=== PATIENT | female | born 1945 | race Caucasian/White ===

== ENCOUNTER → 2023-09-12 | Outpatient (CLI) | payer MEDICARE, OTHER | END | disposition home or self-care (01) | LOC: SHCH 09:26 | PROVIDERS: ATTEND Internal Medicine | DX: I08.0 Rheumatic disorders of both mitral and aortic valves (principal); R94.31 Abnormal electrocardiogram [ECG] [EKG] | CPT/HCPCS: 93306 ==

== ENCOUNTER → 2023-10-07 | Outpatient (CLI) | payer MEDICARE, OTHER ==
[2023-10-07] MEDS: REGADENOSON 0.4 MG/5 ML PF SYG IVP ONE (10:28)
== END | disposition home or self-care (01) ==
LOC: SHCH 08:19
PROVIDERS: ATTEND Internal Medicine
DX: I49.3 Ventricular premature depolarization (principal); R94.31 Abnormal electrocardiogram [ECG] [EKG]; R07.89 Other chest pain
CPT/HCPCS: 78452; 96374; 93017; J2785; A9500 ×2

== ENCOUNTER 2024-04-21 16:17 | Observation (INO) | payer MEDICARE ==
[~2024-04-21] VITALS: Ht 167.6 cm; Wt 87.5 kg
--- NOTE | 2024-04-21 16:44 | EKG ---
[facility] Test Date: 2024-04-21 Test Time: 16:41:24 Pat Name: NAINA MORGAN Department: [facility] Room: Gender: F Websphere Administrator: [id number] : 1945 Requested By: BANDAR DANG Order Number: [id number] Reading MD: Erika Flores Measurements Intervals [place] Rate: 89 P: 34 SD: 178 QRS: 35 QRSD: 97 T: 36 QT: 374 QTc: 455 Interpretive Statements Sinus rhythm Low voltage, precordial leads No previous ECG available for comparison Electronically Signed On 04-21-2024 17:10:20 JEWELRY MOLD MAKER by Erika Flores Please click the below link to view image of tracing.
[2024-04-21 16:48] LABS: BASOPHILS # (AUTO) 0.06 K/uL (0.00-0.20); BASOPHILS % (AUTO) 0.8 % (0.0-5.0); EOSINOPHILS # (AUTO) 0.19 K/uL (0.00-0.70); EOSINOPHILS % (AUTO) 2.6 % (0.0-8.0); HEMATOCRIT 41.2 % (36-48); IMMATURE GRANULOCYTE ABSOLUTE 0.02 K/uL (0-1); LYMPHOCYTES # (AUTO) 2.4 K/uL (1.0-4.8); LYMPHOCYTES % (AUTO) 32.5 % (21.0-51.0); MEAN CORPUSCULAR HEMOGLOBIN 31.5 pg (27.0-33.0); MEAN CORPUSCULAR VOLUME 95.4 fL (79-99); MONOCYTES # (AUTO) 0.6 K/uL (0.1-1.0); MONOCYTES % (AUTO) 8.6 % (3.0-13.0); NEUTROPHILS % (AUTO) 55.2 % (40.0-77.0); PLATELET COUNT (AUTO) 139 K/uL (130-400); RED BLOOD CELL COUNT(AUTO) 4.32 MIL/uL (4.00-5.50); RED CELL DISTRIBUTION WIDTH 14.1 % (11.0-15.5); WHITE BLOOD COUNT (AUTO) 7.2 K/uL (4.8-10.8)
--- NOTE | 2024-04-21 16:48 | NUR ---
SEE TRAUMA FLOWSHEET
[2024-04-21] MEDS: LIDOCAINE HCL 1% 20 ML VIAL INJ STA (17:09)
[2024-04-21] MEDS: teTANUS/diphthERIA TOXOID [ADULT] 0.5 ML VIAL IM ONE (17:11)
[2024-04-21 17:14] LABS: CREATININE 1.3 mg/dL (0.5-1.0); POTASSIUM 4.5 mmol/L (3.5-5.1)
--- NOTE | 2024-04-21 17:15 | HMCIMG ---
CT HEAD/BRAIN W/O CONTRAST HISTORY: No additional history given. COMPARISON: None TECHNIQUE: Multiple sequential axial images of the head were obtained from the base of the skull through vertex. Patient was not given contrast through intravenous route. FINDINGS: Left frontal scalp soft tissue swelling is seen. The ventricles and extraventricular CSF spaces are dilated consistent with cerebral atrophy. Nonspecific white matter changes seen. There is no midline shift, mass effect or herniation. No acute intracranial bleed is seen. Visualized portion of the paranasal sinuses are grossly within normal limits. IMPRESSION: 1. No acute intracranial bleed is seen. 2. Atrophy with white matter changes. CT was performed with one or more following dose reduction techniques: automated exposure control, adjustment of the mA and kv according to patient's size, or use of a iterative reconstruction technique.
--- NOTE | 2024-04-21 17:17 | HMCIMG ---
CT CERVICAL SPINE W/O CONTRAST HISTORY: Trauma COMPARISON: None TECHNIQUE: Multiple sequential axial images of the cervical spine were obtained including post processing sagittal and coronal reconstruction images. Patient was not given contrast through intravenous route. FINDINGS: There is straightening of normal lordotic cervical curvature which may be related to muscle spasm or positioning. There is no loss of vertebral height. Evaluation for disc and cord pathology is limited with CT study. No evidence of fracture or dislocation is seen. There are degenerative changes with cervical spine spondylosis. There is atherosclerosis. IMPRESSION: 1. No fracture is seen. DJD with cervical spine spondylosis. CT was performed with one or more following dose reduction techniques: automated exposure control, adjustment of the mA and kv according to patient's size, or use of a iterative reconstruction technique.
--- NOTE | 2024-04-21 17:55 | ERN ---
ED Note History of Present Illness Stated Complaint: HEAD LACERATION Chief Complaint: Multiple Trauma/Fall Time Seen by MD: 16:22 Time Seen by Midlevel: 16:30 Dictation: 78-year-old female with a history of AFib, hypertension, cholesterol went to the bathroom stood up from the toilet felt dizzy and had a syncopal episode. Patient is taking Xarelto. Complaining of headache and pain to the left upper eyebrow, laceration noted with bruising and minimal bleeding. Allergies: Coded Allergies: Penicillins (Unverified Allergy, Unknown, 04/21/24) morphine (Unverified Allergy, Unknown, 04/21/24) Past Medical History Past Medical History: No Pertinent History Surgical History: None Review of System Dictation Constitutional: Negative for fever,chills, and weight loss Eyes: Negative for injury, pain,redness, and discharge ENT: Negative for injury,pain or swelling Cardiovascular: Negative for chest pain, palpitations, and edema Respiratory: Negative for shortness of breath, cough, and wheezing, Abdomen/GI: Negative for abdominal pain, nausea, vomiting, diarrhea, and constipation Back: Negative for injury and pain : Negative for injury, bleeding and discharge MS/Extremity: Negative for injury and deformity laceration to the left upper eyebrow Skin: Negative for rash, and discoloration Neuro: Negative for headache, weakness, numbness, tingling, and seizure , syncopal episode Psych: Negative for suicide ideation, homicidal ideation, and hallucinations Review of Systems: was completed Initial Vital Sign VS Vital Signs Date Time Temp Pulse Resp B/P (MAP) Pulse Ox O2 Delivery O2 Flow Rate FiO2 04/21/24 16:29 97.0 99 0 162/72 98 Room Air Physical Exam Dictation General: awake, alert, NAD Head/Face: Normocephalic, atraumatic Eyes: PERRL, EOMI, vision at baseline ENT: oral cavity clear, TMs clear, no signs of infection Neck: Trachea midline, supple, no nuchal rigidity Cardiovascular: RRR, normal S1/S2, No MRGs, no JVD Respiratory: CTAB, no respiratory distress, No rales or wheezes Abdomen: Soft, non-tender, non-distended, normal bowel sounds, no guarding or rebound. Skin: Warm, dry, normal turgor, no rash 1 in laceration above the left eyebrow MS/Extremity: Pulses equal, no cyanosis, neurovascular intact, FROM Neuro: COAx4, GCS 15, strength 5/5, CN 2-12 intact, normal cerebellar exam, normal gait, Psych: Normal behavior, mood, and affect normal Results (Laboratory/Radiology) Laboratory/Radiology Laboratory Tests Test 04/21/24 16:40 White Blood Count 7.2 K/uL (4.8-10.8) Red Blood Count 4.32 MIL/uL (4.00-5.50) Hemoglobin 13.6 g/dL (12.0-16.0) Hematocrit 41.2 % (36-48) Mean Corpuscular Volume 95.4 fL (79-99) Mean Corpuscular Hemoglobin 31.5 pg (27.0-33.0) Mean Corpuscular Hemoglobin Concent 33.0 g/dL (32.0-36.0) Red Cell Distribution Width 14.1 % (11.0-15.5) Platelet Count 139 K/uL (130-400) Mean Platelet Volume 10.2 fL (7.5-10.5) Immature Granulocyte % (Auto) 0.3 % (0-1) Neutrophils (%) (Auto) 55.2 % (40.0-77.0) Lymphocytes (%) (Auto) 32.5 % (21.0-51.0) Monocytes (%) (Auto) 8.6 % (3.0-13.0) Eosinophils (%) (Auto) 2.6 % (0.0-8.0) Basophils (%) (Auto) 0.8 % (0.0-5.0) Neutrophils # (Auto) 4.0 K/uL (1.8-7.7) Lymphocytes # (Auto) 2.4 K/uL (1.0-4.8) Monocytes # (Auto) 0.6 K/uL (0.1-1.0) Eosinophils # (Auto) 0.19 K/uL (0.00-0.70) Basophils # (Auto) 0.06 K/uL (0.00-0.20) Absolute Immature Granulocyte (auto 0.02 K/uL (0-1) Nucleated Red Blood Cells 0.0 % (0.0-0.19) Sodium Level 142 mmol/L (136-145) Potassium Level 4.5 mmol/L (3.5-5.1) Chloride Level 105 mmol/L (101-111) Carbon Dioxide Level 30 mmol/L (21-32) Blood Urea Nitrogen 28 mg/dL (7-18) H Creatinine 1.3 mg/dL (0.5-1.0) H Glomerular Filtration Rate Calc 42 mL/min (>90) Random Glucose 133 mg/dL (70-105) H Total Calcium 9.4 mg/dL (8.5-10.1) Troponin I High Sensitivity 10 ng/L (4-50) Labs Reviewed?: Yes EKG Comment: Date:04/21/23 Time:1641 Ventricular rate:89 [place] interval:178 QRS duration:35 QT/QTc:374/455 EKG interpretation: Sinus rhythm, low voltage, precordial leads Reviewed by ED Attending no STEMI interpreted by ER MD CT Scan Comment: [address] [address] IMAGING REPORT Signed PATIENT: NAINA MORGAN MR#: [id number] : 1945 SEX: F AGE: 78 LOCATION: [facility] ORDER 1630 STATUS: REG ER REPORT#: [id number] SERVICE 1629 REASON: syncope/fall ORDERING PHYSICIAN: BANDAR DANG NP PROCEDURE: HEAD WO - CT HEAD/BRAIN W/O CONTRAST CT HEAD/BRAIN W/O CONTRAST HISTORY: No additional history given. COMPARISON: None TECHNIQUE: Multiple sequential axial images of the head were obtained from the base of the skull through vertex. Patient was not given contrast through intravenous route. FINDINGS: Left frontal scalp soft tissue swelling is seen. The ventricles and extraventricular CSF spaces are dilated consistent with cerebral atrophy. Nonspecific white matter changes seen. There is no midline shift, mass effect or herniation. No acute intracranial bleed is seen. Visualized portion of the paranasal sinuses are grossly within normal limits. IMPRESSION: 1. No acute intracranial bleed is seen. 2. Atrophy with white matter changes. CT was performed with one or more following dose reduction techniques: automated exposure control, adjustment of the mA and kv according to patient's size, or use of a iterative reconstruction technique. DICTATED BY: DANIELLE RYAN MD DATE: 04/21/241711 ELECTRONICALLY SIGNED BY: DANIELLE RYAN MD DATE: 04/21/241714 [place] [id number] [id number] IMAGING REPORT Signed PATIENT: NAINA MORGAN MR#: [id number] : 1945 SEX: F AGE: 78 LOCATION: [facility] ORDER 1630 STATUS: REG [facility] RE[facility]#: [id number] SERVICE 162 REASON: syncope/fall ORDERING PHYSICIAN: BANDAR DANG NP PROCEDURE: C SPIN WO - CT CERVICAL SPINE W/O CONTRAST CT CERVICAL SPINE W/O CONTRAST HISTORY: Trauma COMPARISON: None TECHNIQUE: Multiple sequential axial images of the cervical spine were obtained including post processing sagittal and coronal reconstruction images. Patient was not given contrast through intravenous route. FINDINGS: There is straightening of normal lordotic cervical curvature which may be related to muscle spasm or positioning. There is no loss of vertebral height. Evaluation for disc and cord pathology is limited with CT study. No evidence of fracture or dislocation is seen. There are degenerative changes with cervical spine spondylosis. There is atherosclerosis. IMPRESSION: 1. No fracture is seen. DJD with cervical spine spondylosis. CT was performed with one or more following dose reduction techniques: automated exposure control, adjustment of the mA and kv according to patient's size, or use of a iterative reconstruction technique. DICTATED BY: DANIELLE RYAN MD DATE: 04/21/241712 ELECTRONICALLY SIGNED BY: DANIELLE RYAN MD DATE: 04/21/241716 ED Course ED Course Orders Procedure Category Date Status Time Cbc With Differential LAB 04/21/24 Complete 16:29 Basic Metabolic Panel LAB 04/21/24 Complete 16:29 12 Lead Ekg Tracing- EKG 04/21/24 Resulted Technical 16:29 Troponin I High LAB 04/21/24 Complete Sensitivity 16:29 Ct Head/Brain W/O CT 04/21/24 Resulted Contrast 16:29 Ct Cervical Spine W/O CT 04/21/24 Resulted Contrast 16:29 Urinalysis Profile LAB 04/21/24 Logged 16:29 Lidocaine Hcl 1% 20ml PHA 04/21/24 Complete Vial (Lidocaine Hc 16:31 Tetanus,Diphtheria PHA 04/21/24 Complete Tox [Adult] (Diphther 17:00 Current Medications Medications (Trade) Dose Ordered Sig/Ben Route PRN Reason Start Time Stop Time Status Last Admin Dose Admin Lidocaine HCl (Lidocaine HCl 1% 20ml Vial) 10 ml ONCE STAT INJ 04/21/24 16:31 04/21/24 16:33 DC 04/21/24 17:09 Tetanus/ Diphtheria Toxoids Adsorbed (DiphthERIA-teTANUS TOXOID [ADULT]/ DECAVAC) 0.5 ml ONCE ONCE IM 04/21/24 17:00 04/21/24 17:01 DC 04/21/24 17:11 Vital Signs Date Time Temp Pulse Resp B/P (MAP) Pulse Ox O2 Delivery O2 Flow Rate FiO2 04/21/24 16:29 97.0 99 0 162/72 98 Room Air Medical Decision Making MDM MDM: 78-year-old female with a history of AFib, hypertension, cholesterol went to the bathroom stood up from the toilet felt dizzy and had a syncopal episode. Patient is taking Xarelto. Complaining of headache and pain to the left upper eyebrow, laceration noted with bruising and minimal bleeding.CBC shows no leukocytosis, no anemia, no thrombocytopenia. EKGs shows mild elevation in creatinine and BUN, could be related to dehydration. CT scan of the head and neck shows no acute findings. Laceration was repaired. Discussed findings with the patient, educated patient that patient needs to stay for further ev aluation. Spoke to Dr. Triplett also, okay to admit. Differential diagnosis: Cardia, ACS, ICH, CVA, Rationale: Tests considered and ordered secondary to shared decision making include: labs, ECG and radiology Previous outside records reviewed: Old ER visits. Risk of complication and/or morbidity or mortality of patient management: None Medications-Per medication reconciliation Need for hospitalization: Patient does meet criteria for hospitalization. Need for emergency major/minor surgery: No There are no social concerns with this patient. Prescription drug management Prescriptions will include symptomatic care Patient's prior external medical records from other ER visits were reviewed by me as indicated. Prior testing and results from previous visits were reviewed. Prior tests were taken into account with medical decision making and resource utilization, independent historian/historians were used to obtain complete medical history. I independently interpreted the test that were performed, results were reviewed by me and considered findings on radiology if ordered. Medical management and examination interpretation discussions were had by me with other qualified healthcare professionals as indicated for the patient's care. DX & DISP Disposition: Inpatient Decision to Admit Date: Apr 21, 2024 Decision to Admit Time: 18:11 Departure Impression: Primary Impression: Syncope Additional Impressions: Laceration, Dehydration Condition: Stable Referrals: MAE SOLARES MD (PCP) Time of Disposition: 18:11 I have reviewed the case, and I agree with, Diagnosis and Plan BANDAR DANG NP Apr 21, 2024 17:55
[2024-04-21 21:07] LABS: APPEARANCE,URINE CLEAR (CLEAR); BILIRUBIN,URINE NEGATIVE (NEGATIVE); COLOR,URINE YELLOW (YELLOW); GLUCOSE, URINE (UA) NEGATIVE (NEGATIVE); KETONES,URINE NEGATIVE (NEGATIVE); LEUKOCYTE ESTERASE ,URINE 250 Leu/uL (NEGATIVE); NITRATE,URINE 2+ (NEGATIVE); OCCULT BLOOD,URINE NEGATIVE (NEGATIVE); PROTEIN,URINE NEGATIVE (NEGATIVE); UROBILINOGEN,URINE 0.2 mg/dL (0.2-1.0)
[2024-04-21 21:08] LABS: ADD UA MICROSCOPIC YES
[2024-04-21 21:11] LABS: MUCUS,URINE RARE LPF (None Seen); RBC,URINE 0-1 /HPF (0-1); WBC,URINE 26-50 /HPF (0-1)
--- NOTE | 2024-04-21 21:52 | NUR ---
PATIENT DID NOT BRING HOME MEDICATIONS
[2024-04-22] MEDS: acetaMINOPHEN 325 MG TAB PO PRN (06:50)
--- NOTE | 2024-04-22 10:30 | CONS ---
[facility] CARDIOLOGY CONSULTATION NOTE Date Patient Seen: Apr 22, 2024 Time of Visit: 10:24 Reason for Consultation: Syncope History of Present Illness: Patient is a 78-year-old female with past medical history of ischemic CVA in 2021, diagnosed with atrial fibrillation with recurrent CVA in June of 2023 while compliant with Eliquis therefore transitioned to Xarelto, [place] macroglobulinemia for which she follows Dr. Barkley, with known normal left ventricular systolic function by echocardiogram in 2023 of 55-60% and benign Lexiscan cardiac stress test in October of 2023, hypothyroidism and known statin intolerance. Patient presents to [facility] suffering loss of consciousness event. Patient reports he was experiencing significant stomach cramps, had an episode of diarrhea, and passed out when she stood up from the toilet. She suffered extensive bruising to the bilateral periorbital area and a superficial laceration to the left side of her forehead. She has a history of 1 prior episode which occurred in August 2023 which was precipitated by similar symptoms, however otherwise she has been asymptomatic without episode of li ghtheadedness, dizziness, presyncope, palpitations or sensation of rapid heart rate. Cardiology consultation requested for additional recommendations. Past Medical History: Non-Hodgkin's lymphoma, follows Dr. Barkley Statin intolerance Hypothyroidism Paroxysmal atrial fibrillation on chronic anticoagulation, AFib diagnosed March 26, 2022 Ischemic CVA (03/2022) Ischemic CVA (right parietal) while on Eliquis therapy (06/2023), transitioned to Xarelto therapy. Hypertension Lexiscan stress test in October 24- for ischemia, no infarct. LVEF 70% Past Surgical History: Bilateral knee replacement Right rotator cuff repair Family History: Positive for stroke and hypertension Social History: Independent with ADLs, good family support, nonsmoker Home Meds: 81 mg daily aspirin 20 mg daily omeprazole Vitamin-D 12 a 1000 mcg one tablet once a day Latanoprost 0.005% solution one drop in affected eye in the evening once a day Folic acid 400 mcg two tablets once a day Synthroid 25 mcg one tablet in the morning on empty stomach Zyrtec Allergy 10 mg one tablet daily Calcium plus D3 Xarelto 20 mg one tablet daily with food Lisinopril-hydrochlorothiazide 20-12.51 tablet once a day Current Meds: Current Medications Medications Dose Ordered Sig/Ben Start Time Stop Time Status Last Admin Acetaminophen 650 mg Q6H PRN 04/21/24 18:30 05/21/24 18:29 04/22/24 06:50 Review of Systems: Laceration to the left side of her forehead status post repair with sutures. Significant periorbital swelling and bruising bilaterally. Physical Examination: GENERAL: [No acute distress.] HEAD: Laceration to the left side of her forehead status post repair with sutures. Significant periorbital swelling and bruising bilaterally. EYES: conjunctiva not injected ENT: [Hearing grossly intact, normal oropharynx.] NECK: [ Normal carotid upstrokes without bruits.] LUNGS: [Clear breath sounds bilaterally. No wheezes, or rhonchi.] HEART: [Normal rate and rhythm. Normal S1 and S2 without murmurs, gallop or rub.] VASC: [Peripheral pulses +2 bilaterally.] ABD: soft, nontender, nondistended EXT: [No clubbing, cyanosis or edema.] SKIN: [warm, dry, ecchymoses and swelling to periorbital] NEURO: [Awake, alert, and oriented x3. No focal sensory or strength deficits noted.] Vital Signs (last 8hr) Date Time Temp Pulse Resp B/P (MAP) Pulse Ox O2 Delivery O2 Flow Rate FiO2 04/22/24 09:57 98.2 98 17 133/55 98 Room Air* 0 21 04/22/24 04:12 98.2 79 17 151/58 97 Room Air* 0 21 Laboratory: [ ] Hematology Labs: Test 04/21/24 16:40 Range/Units White Blood Count 7.2 4.8-10.8 K/uL Red Blood Count 4.32 4.00-5.50 MIL/uL Hemoglobin 13.6 12.0-16.0 g/dL Hematocrit 41.2 36-48 % Mean Corpuscular Volume 95.4 79-99 fL Mean Corpuscular Hemoglobin 31.5 27.0-33.0 pg Mean Corpuscular Hemoglobin Concent 33.0 32.0-36.0 g/dL Red Cell Distribution Width 14.1 11.0-15.5 % Platelet Count 139 130-400 K/uL Mean Platelet Volume 10.2 7.5-10.5 fL Immature Granulocyte % (Auto) 0.3 0-1 % Neutrophils (%) (Auto) 55.2 40.0-77.0 % Lymphocytes (%) (Auto) 32.5 21.0-51.0 % Monocytes (%) (Auto) 8.6 3.0-13.0 % Eosinophils (%) (Auto) 2.6 0.0-8.0 % Basophils (%) (Auto) 0.8 0.0-5.0 % Neutrophils # (Auto) 4.0 1.8-7.7 K/uL Lymphocytes # (Auto) 2.4 1.0-4.8 K/uL Monocytes # (Auto) 0.6 0.1-1.0 K/uL Eosinophils # (Auto) 0.19 0.00-0.70 K/uL Basophils # (Auto) 0.06 0.00-0.20 K/uL Absolute Immature Granulocyte (auto 0.02 0-1 K/uL Nucleated Red Blood Cells 0.0 0.0-0.19 % Chemistry Labs: Test 04/22/24 06:48 04/21/24 16:40 Range/Units Total Creatine Kinase 69 21-232 U/L Troponin I High Sensitivity 14.6 4-50 ng/L Sodium Level 142 136-145 mmol/L Potassium Level 4.5 3.5-5.1 mmol/L Chloride Level 105 101-111 mmol/L Carbon Dioxide Level 30 21-32 mmol/L Blood Urea Nitrogen 28 H 7-18 mg/dL Creatinine 1.3 H 0.5-1.0 mg/dL Glomerular Filtration Rate Calc 42 >90 mL/min Random Glucose 133 H 70-105 mg/dL Total Calcium 9.4 8.5-10.1 mg/dL Diagnostics / Radiology: REASON: syncope/fall ORDERING PHYSICIAN: BANDAR DANG NP PROCEDURE: HEAD WO - CT HEAD/BRAIN W/O CONTRAST CT HEAD/BRAIN W/O CONTRAST HISTORY: No additional history given. COMPARISON: None TECHNIQUE: Multiple sequential axial images of the head were obtained from the base of the skull through vertex. Patient was not given contrast through intravenous route. FINDINGS: Left frontal scalp soft tissue swelling is seen. The ventricles and extraventricular CSF spaces are dilated consistent with cerebral atrophy. Nonspecific white matter changes seen. There is no midline shift, mass effect or herniation. No acute intracranial bleed is seen. Visualized portion of the paranasal sinuses are grossly within normal limits. IMPRESSION: 1. No acute intracranial bleed is seen. 2. Atrophy with white matter changes. CT was performed with one or more following dose reduction techniques: automated exposure control, adjustment of the mA and kv according to patient's size, or use of a iterative reconstruction technique. 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 Discussed with primary MD, Dr Triplett, for discharge. EMBER BERNABE DO Apr 22, 2024 10:30
--- NOTE | 2024-04-22 11:25 | NUR ---
MUNIR FATIMA AT BEDSIDE FOR CARDIOLOGY CONSULT
[2024-04-22] MEDS ORDERED: RIVA20TA PO (12:42)
[2024-04-22] MEDS ORDERED: CYAN100099 PO (12:42)
[2024-04-22] MEDS ORDERED: FOLI0.8C PO (12:42)
[2024-04-22] MEDS ORDERED: ASPI-1005 PO (12:42)
[2024-04-22] MEDS ORDERED: CALC-877 PO (12:42)
[2024-04-22] MEDS ORDERED: LISI1TAB51 PO (12:49)
[2024-04-22] MEDS ORDERED: OMEP20CA12 PO (12:49)
[2024-04-22] MEDS ORDERED: LEVO25TA9 PO (12:49)
[2024-04-22] MEDS ORDERED: EZET10TA48 PO (12:49)
[2024-04-22] MEDS ORDERED: CETI10TA87 PO (12:49)
--- NOTE | 2024-04-22 13:16 | NUR ---
ORTHOSTATIC VS LAYING DOWN BP 148/64 HR 78 SITTING BP 140/57 HR 83 STANDING BP 127/55 HR 82
--- NOTE | 2024-04-22 13:46 | NUR ---
CARDIOLOGY CONSULT PT MAY BE DISCHARGED AND REMEDIATION PROJECT ENGINEER A MONITOR FROM [facility].
--- NOTE | 2024-04-22 13:58 | NUR ---
DR BELLO SAYS PT CAN BE DISCHARGED.SHE NEEDS TO SEE DR SOLARES TOMORROW,FOLLOW UP WITH [facility] AND RETURN FOR STITCH REMOVAL.
[2024-04-22 14:34] VITALS: BP 144/69; PULSE 85; RESP 16; TEMP 98.5; O2SAT 97
--- NOTE | 2024-04-22 14:36 | NUR ---
DISCHARGE IV REMOVED.VS WITHIN HER NORMAL RANGE.ALERT AND ORIENTED.WALKED PUT TO ENTRANCE ACCOMPANIED BY [facility].
--- NOTE | 2024-04-22 15:14 | HP ---
HISTORY OF PRESENT ILLNESS: A patient of Dr. Rosen. This is a dictation for a visit on 04/22. The patient was brought to the emergency room after sustaining a fall while at a friend's house. The patient was in restroom when she stood up and felt dizzy and lost consciousness. She had a head trauma, was brought to the emergency room with a traumatic wound in the left forehead area. ALLERGIES: PENICILLIN AND MORPHINE. PAST MEDICAL HISTORY: Atrial fibrillation, hypertension, dyslipidemia, chronic anticoagulation, multiple previous falls. MEDICATIONS: As indicated in the chart. REVIEW OF SYSTEMS: Having no fever, chills, seizures, or loss of consciousness other than mentioned above. No cough, wheezes, or rhonchi. No chest pain, palpitation, dizziness. No nausea, vomiting, diarrhea. No dysuria, urgency, frequency. No rashes, petechiae, or ecchymoses. PHYSICAL EXAMINATION: GENERAL: She is currently awake, alert, oriented in person, time, and place. VITAL SIGNS: In the chart. HEENT: Normocephalic. Left forehead area with a traumatic wound with stitches in place associated with periwound hematoma. There is also ecchymosis in the left superciliary arch. [place] and moist oral mucosa. NECK: Supple. No jugular venous dilation, no carotid bruit, no goiter. LUNGS: Clear to auscultation bilaterally. HEART: S1, S2 are clear. No S3, S4. No friction rub, no murmur. ABDOMEN: Soft, nontender, no masses. EXTREMITIES: No clubbing, cyanosis. No edema. LABORATORY DATA: WBC count 7.2, hemoglobin 13.6, platelets 139. Sodium 142, potassium 4.5, BUN 28, creatinine 1.3. EKG was reported with sinus rhythm, low voltage, no acute ST-T changes. Head CT shows no acute intracranial bleeding, atrophy. CT scan of the cervical spine shows no fracture, no dislocations. ASSESSMENT AND PLAN: * Syncopal episode, the patient has a long history of atrial fibrillation. 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, digital printer. She has seen her recently. We are going to have a consultation with her and she can be discharged if cleared by Cardio. Anticoagulation. The patient is on Xarelto. We are going to continue. There is no evidence of any intracranial bleeding. We will follow recommendations by Cardiology. * Hypertension. Continue current treatment. Otherwise, the patient will be admitted, have her on telemetry monitoring. The patient will be transferred to Dr. Rosen's service. TID: [id number] RECEIPT: [id number]
--- NOTE | 2024-04-23 17:13 | DS ---
Discharge Summary DIAGNOSE(S): [Syncopal episode,. ] HOSPITAL COURSE SUMMARY: [ the patient has a long history of atrial fibrillation. 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, global supply chain vice president. She has seen her recently. and she is discharged after cleared by Cardio] [employer] DEVELOPER(S): [] PROCEDURE(S)/TREATMENT(S): [] PROBLEM(S): [] FOLLOW-UP TEST(S): [] DISCHARGE INSTRUCTIONS: [] Home Meds Reported Medications Omeprazole (Omeprazole) 20 Mg Capsule.dr, 1 CAP PO DAILY for 30 Days, #30 CAP 0 Refills 04/22/24 Lisinopril/Hydrochlorothiazide (Lisinopril-Hctz 20-12.5 mg Tab) 20 Mg-12.5 Mg Tablet, 1 TAB PO DAILY for 30 Days, #30 TAB 0 Refills 04/22/24 Levothyroxine Sodium (Synthroid 25 Mcg Tab) 25 Mcg Tablet, 1 TAB PO DAILY for 30 Days, #30 TAB 0 Refills 04/22/24 Cetirizine HCl (Cetirizine HCl) 10 Mg Tab.chew, 1 TAB PO HS for allergy symptoms for 30 Days, #30 TAB 0 Refills 04/22/24 Ezetimibe (Ezetimibe) 10 Mg Tablet, 1 TAB PO DAILY for 30 Days, #30 TAB 0 Refills 04/22/24 Aspirin (ASPIRIN 81MG CHEW TAB) 81 Mg Tab.chew, 1 TAB PO DAILY for 30 Days, #30 TAB 0 Refills 04/22/24 Folic Acid (Folic Acid) 0.8 Mg Capsule, 1 CAP PO DAILY for 30 Days, #30 CAP 0 Refills 04/22/24 Cyanocobalamin (Vitamin B-12) (B-12) 1,000 Mcg Tablet, 1 TAB PO DAILY for 30 Days, #30 TAB 0 Refills 04/22/24 Calcium Carbonate/Vitamin D3 (Calcium 500 + D Tablet) 500 Mg Calcium-10 Mcg (400 Unit) Tablet, 1 TAB PO BID for 30 Days, #60 TAB 0 Refills 04/22/24 Discontinued Reported Medications Rivaroxaban (Xarelto) 20 Mg Tablet, 1 TAB PO DAILY for 30 Days, #30 TAB 0 Refills with food 04/22/24 MEA SOLARES MD Apr 23, 2024 17:13
== END 2024-04-22 18:51 | disposition home or self-care (01) ==
LOC: EDH 16:17 → EDHIP 18:16
PROVIDERS: ADMIT Internal Medicine; ATTEND Internal Medicine
DX: R55 Syncope and collapse (principal); I10 Essential (primary) hypertension; E03.9 Hypothyroidism, unspecified; I48.0 Paroxysmal atrial fibrillation; E86.0 Dehydration; E78.5 Hyperlipidemia, unspecified; S01.112A Laceration without foreign body of left eyelid and periocular area, initial encounter; M47.812 Spondylosis without myelopathy or radiculopathy, cervical region; Z79.01 Long term (current) use of anticoagulants; Z88.0 Allergy status to penicillin; Z88.5 Allergy status to narcotic agent; Z79.899 Other long term (current) drug therapy; Z85.72 Personal history of non-Hodgkin lymphomas; Z85.79 Personal history of other malignant neoplasms of lymphoid, hematopoietic and related tissues; Z86.73 Personal history of transient ischemic attack (TIA), and cerebral infarction without residual deficits; W19.XXXA Unspecified fall, initial encounter; Y93.89 Activity, other specified; Y92.098 Other place in other non-institutional residence as the place of occurrence of the external cause; Y99.8 Other external cause status
CPT/HCPCS: 99285; 82550 ×3; 84484 ×4; 80048; 85025; 87086 ×2; 87186; 81001; 36415 ×2; 90714; 70450; 72125; 90471; 93005; G0378 ×25